=== PATIENT | male | born 1950 | race Caucasian/White ===

== ENCOUNTER 2017-12-28 20:18 | Emergency (ER) | payer OTHER ==
--- NOTE | 2017-12-28 20:21 | PDOC ---
Rapid Medical Evaluation Time Seen by Provider: 12/28/17 20:19 Medical Evaluation: 12/28/17 20:19 I have performed a brief in-person evaluation of the patient The patient presents with a chief complaint of: elevated blood sugar. Reports increase urination and thirst Denies dizziness Pertinent physical exam findings are: NAD even and unlabored breathing ambulatory I have ordered the following: iv, labs, fsg The patient will proceed to the ED for further evaluation.
[2017-12-28 20:22] VITALS: BP 184/89; PULSE 96; TEMP 97.6; BMI 33.1
[2017-12-28 20:58] LABS: HEMATOCRIT 38.5 % (35.4-49); HEMOGLOBIN 13.3 GM/dL (11.7-16.9); MCHC 34.6 g/dl (32.0-35.9); MEAN CELL VOLUME 83.8 fl (80-96); MEAN PLT VOLUME 12.1 fl (7.5-11.1); MONO % 4.7 % (3.8-10.2); NEUT % 78.3 % (42.8-82.8); PLATELET COUNT 177 K/MM3 (134-434); RBC 4.59 M/mm3 (4.00-5.60); RDW 13.8 % (11.9-15.9)
[2017-12-28 21:23] LABS: PLATELET ESTIMATE ADEQUATE
[2017-12-28 21:25] LABS: ALBUMIN 3.6 g/dl (3.4-5.0); ALK PHOS 166 U/L (45-117); ANION GAP 11 MMOL/L (8-16); BILIRUBIN,TOTAL 1.1 mg/dL (0.2-1); BLOOD UREA NITROGEN 19 mg/dL (7-18); CALCIUM 9.3 mg/dL (8.5-10.1); CHLORIDE 104 mmol/L (98-107); CO2 25 mmol/L (21-32); CREATININE 1.5 mg/dL (0.55-1.3); POTASSIUM 4.3 mmol/L (3.5-5.1); SGOT/AST 8 U/L (15-37); SGPT/ALT 20 U/L (13-61); SODIUM 140 mmol/L (136-145); TOT PROT 7.6 g/dl (6.4-8.2)
[2017-12-28 21:28] LABS: GLUCOSE,RANDOM 358 mg/dL (74-106)
[2017-12-28 21:35] LABS: URINE APPEARANCE CLEAR; URINE BILIRUBIN NEGATIVE (<2.0 mg/dL); URINE COLOR YELLOW; URINE GLUCOSE (UA) 3+ (NEGATIVE); URINE KETONE NEGATIVE (NEGATIVE); URINE LEUK ESTERASE NEGATIVE (NEGATIVE); URINE NITRITE NEGATIVE (NEGATIVE); URINE UROBILINOGEN NEGATIVE mg/dL (0.2-1.0)
[2017-12-28 21:36] LABS: URINE PROTEIN 2+ (NEGATIVE)
[2017-12-28 21:38] LABS: EPI CELLS RARE /HPF (FEW); URINE MUCUS RARE
--- NOTE | 2017-12-28 21:40 | PDOC ---
History of Present Illness - General Chief Complaint: Blood Sugar Problem Stated Complaint: BLOOD SUGAR PROBLEM Time Seen by Provider: 12/28/17 20:19 History Source: Patient Exam Limitations: No Limitations - History of Present Illness Initial Comments: 12/28/17 21:39 67M with pmh of diabetes, HTN and bypass surgery, presenting with high blood sugar (376 on fingerstick). Patient usually takes 20 units of insulin every meal but stopped 4 days ago as he was waiting to get his paycheck tomorrow to pay for it. He only feels midly dizzy, otherwise feels fine. No nausea, chest pain, vomiting or loss of balance. 12/28/17 21:41 12/28/17 22:06 Patient states that the only medication he ran out of is his insulin. Past History - Past Medical History Allergies/Adverse Reactions: Allergies Allergy/AdvReac Type Severity Reaction Status Date / Time povidone-iodine Allergy Verified 12/28/17 20:23 [From Betadine] soap [From Betadine] Allergy Verified 12/28/17 20:23 Cardiac Disorders: Yes (TRIPLE BYPASS, STENTS.) COPD: No Diabetes: Yes Hypercholesterolemia: Yes - Surgical History Cardiac Surgery: Yes (BYPASS, STENTS.) - Suicide/Smoking/Psychosocial Hx Smoking History: Never smoked Review of Systems - Review of Systems Able to Perform ROS?: Yes Is the patient limited Pashto proficient: No Constitutional: No: Symptoms Reported HEENTM: No: Symptoms Reported Respiratory: No: Symptoms reported Cardiac (ROS): No: Symptoms Reported ABD/GI: No: Symptoms Reported : No: Symptoms Reported Musculoskeletal: No: Symptoms Reported Neurological: Yes: See HPI, Dizziness Endocrine: Yes: Increased Thirst, Increased Urine Hematologic/Lymphatic: No: Symptoms Reported *Physical Exam - Vital Signs Last Vital Signs Temp Pulse Resp BP Pulse Ox 97.6 F 96 H 18 184/89 H 98 12/28/17 20:19 12/28/17 20:19 12/28/17 20:19 12/28/17 20:19 12/28/17 20:19 - Physical Exam General Appearance: Yes: Nourished, Appropriately Dressed. No: Apparent Distress HEENT: positive: EOMI, LINDSAY, Normal ENT Inspection Respiratory/Chest: positive: Lungs Clear, Normal Breath Sounds. negative: Chest Tender, Respiratory Distress Cardiovascular: positive: Regular Rhythm, Regular Rate, S1, S2 Gastrointestinal/Abdominal: positive: Normal Bowel Sounds, Flat, Soft. negative : Tender Musculoskeletal: positive: Normal Inspection. negative: CVA Tenderness Extremity: positive: Normal Capillary Refill, Normal Inspection, Normal Range of Motion Neurologic: positive: Fully Oriented, Alert, Normal Mood/Affect, Normal Response , Motor Strength /5 ED Treatment Course - LABORATORY CBC & Chemistry Diagram: 12/28/17 20:49 12/28/17 20:49 - ADDITIONAL ORDERS Additional order review: Laboratory Results 12/28/17 12/28/17 21:30 20:49 Sodium 140 Potassium 4.3 Chloride 104 Carbon Dioxide 25 Anion Gap 11 BUN 19 H Creatinine 1.5 H Creat Clearance w eGFR 46.54 Random Glucose 358 H* Calcium 9.3 Total Bilirubin 1.1 H AST 8 L ALT 20 Alkaline Phosphatase 166 H Troponin I < 0.02 Total Protein 7.6 Albumin 3.6 Urine Color Yellow Urine Appearance Clear Urine pH 5.0 Ur Specific [place] 1.029 Urine Protein 2+ H Urine Glucose (UA) 3+ H Urine Ketones Negative Urine Blood 3+ H Urine Nitrite Negative Urine Bilirubin Negative Urine Urobilinogen Negative Ur Leukocyte Esterase Negative Urine WBC (Auto) 1 Urine RBC (Auto) 172 Ur Epithelial Cells Rare Urine Mucus Rare 12/28/17 20:49 RBC 4.59 MCV 83.8 MCHC 34.6 RDW 13.8 MPV 12.1 H Neutrophils % 78.3 Lymphocytes % 14.0 Monocytes % 4.7 Eosinophils % 2.0 Basophils % 1.0 Medical Decision Making - Medical Decision Making 12/28/17 21:44 Uncontrolled hyperglycemia due to non-adherence to medication. Will give bolus of NS and reassess. 12/28/17 22:06 Giving patient dose of Novasc 12/28/17 22:[address] Carvalho giving patient his home dose of Toprol for suspected non- compliance. *DC/Admit/Observation/Transfer - Referrals Referrals: Brendon Solano MD [Primary Care Provider] - - Patient Instructions - Post Discharge Activity
[2017-12-28 21:54] LABS: INR 0.97 (0.83-1.09); PROTHROMBIN TIME (PATIENT) 11.4 SEC (9.7-13.0)
[2017-12-28 21:56] LABS: ACTIVATED PTT 28.7 SECONDS (25.2-36.5)
--- NOTE | 2017-12-28 22:03 | PDOC ---
Attending Attestation - HPI HPI: This patient is a 67 year old male with PMHx IDDM, HTN, who presents to the ED with elevated blood glucose. Patient states that he usually takes 20 units of insulin every meal but stopped taking it 4 days ago since he was waiting for his paycheck to pay for it. He states that he checked his blood sugar and it measured 376. So he decided to come to the ER. He states that he is going to [facility] pick[facility] his prescription tomorrow. His only other complaint today is dizziness. Denies any nausea, vomiting, chest pain. <Shayla Croft - Last Filed: 12/28/17 22:07> - Resident Resident Name: Gaston Hernandez - ED Attending Attestation I have performed the following: I have examined & evaluated the patient, The case was reviewed & discussed with the resident, I agree w/resident's findings & plan - HPI HPI: 12/28/17 22:01 Pt comes with noncompliance with his DM or HTN meds. He has the prescription now and the money; nut he wanted to come here to get checked out because he feels his blood sugar is high and he is slightly dizzy. - Physicial Exam PE: 12/28/17 22:03 Agree with resident exam - Medical Decision Making 12/28/17 22:03 1L NSS given; pt is getting lisinopril and toprol 12/28/17 22:58 Vitals improved; Pt received 1 L NSS and he will go home with his meds. Daughter is at bedside. Pt is acetone negative. Ready to go home. 12/29/17 00:01 Pt will be given a subcutaneous dose of regular insulin. He is clear for discharge. <Ciera Carvalho - Last Filed: 12/29/17 00:03>
[2017-12-28] MEDS ORDERED: amLODIPine BESYLATE 5 MG TABLET (FP) PO ONE (22:04)
[2017-12-28 22:49] LABS: ACETONE SERUM NEGATIVE (NEGATIVE)
[2017-12-28] MEDS ORDERED: amLODIPine BESYLATE 5 MG TABLET (FP) ONE (22:55)
[2017-12-28] MEDS ORDERED: INSULIN REGULAR HUMAN 100 UNITS/ML *VIAL SQ ONE (23:41)
[2017-12-28] MEDS ORDERED: INSULIN REGULAR HUMAN 100 UNITS/ML *VIAL ONE (23:57)
== END 2017-12-29 00:52 | disposition home or self-care (01) ==
LOC: JER 20:18
PROC: 3E013VG Introduction of Insulin into Subcutaneous Tissue, Percutaneous Approach (ICD-10-PCS; principal; 2017-12-28)
DX: E11.65 Type 2 diabetes mellitus with hyperglycemia (principal); I10 Essential (primary) hypertension; I25.10 Atherosclerotic heart disease of native coronary artery without angina pectoris; Z95.1 Presence of aortocoronary bypass graft; Z95.5 Presence of coronary angioplasty implant and graft; E78.00 Pure hypercholesterolemia, unspecified; Z91.14 Patient's other noncompliance with medication regimen
CPT/HCPCS: 36415; 80053; 81003; 81015; 82009; 82962; 84484; 85025; 85610; 85730; 96372; 99283-25